=== PATIENT | female | born 1985 | race Caucasian/White ===

== ENCOUNTER → 2017-07-10 | Outpatient (CLI) | payer OTHER | LOC: CIMAGING 16:51 | PROVIDERS: ATTEND Physician Assistant Medical | DX: Z34.01 Encounter for supervision of normal first pregnancy, first trimester (principal); Z3A.08 8 weeks gestation of pregnancy ==

== ENCOUNTER → 2017-07-26 | Outpatient (CLI) | payer OTHER | LOC: BRMIMAGING 12:55 | PROVIDERS: ATTEND Physician Assistant Medical | DX: R93.6 Abnormal findings on diagnostic imaging of limbs (principal) ==